=== PATIENT | male | born 1955 | race Caucasian/White ===

== ENCOUNTER 2019-06-19 06:59 | Inpatient (IN) | payer MEDICARE, OTHER ==
[~2019-06-19] VITALS: Ht 193 cm; Wt 77.3 kg
[2019-06-19] MEDS ORDERED: ONDANSETRON ODT 4 MG TAB.RAPDIS ONE (07:37)
--- NOTE | 2019-06-19 07:59 | PHYS DOC ---
Adult General Chief Complaint Chief Complaint: FACE PROBLEM HPI HPI Patient is a 63-year-old male who presents with complaint of left sided mandibular pain that started yesterday. Patient has long history of trigeminal neuralgia and states that this is a flareup. He states that this is more severe than usual and usually just tries to lay down and bear out the pain. He states that pain is been constant and is severe. He states that symptoms are worsened with movement of his jaw and with palpation of that area.[] Review of Systems Review of Systems Constitutional: Denies fever or chills [] Eyes: Denies change in visual acuity, redness, or eye pain [] Respiratory: Denies cough or shortness of breath [] Cardiovascular: No additional information not addressed in HPI [] Integument: Denies rash or skin lesions [] Neurologic: Negative headache/left-sided facial pain without focal weakness or sensory changes [] All other systems were reviewed and found to be within normal limits, except as documented in this note. Current Medications Current Medications Current Medications Medications (Trade) Dose Ordered Sig/Robbie Start Time Stop Time Status Last Admin Dose Admin Butorphanol Tartrate (Stadol) 2 mg 1X ONCE 06/19/19 08:00 06/19/19 08:01 06/19/19 07:53 2 MG Ondansetron HCl (Zofran Odt) 4 mg STK-MED ONCE 06/19/19 07:37 06/19/19 07:38 DC Ondansetron HCl (Zofran) 4 mg 1X ONCE 06/19/19 08:00 06/19/19 08:01 06/19/19 07:53 4 MG Allergies Allergies Allergies Coded Allergies Type Severity Reaction Last Updated Verified No Known Drug Allergies 06/19/19 No Physical Exam Physical Exam Constitutional: Well developed, well nourished, in moderate distress. [] HENT: Normocephalic, atraumatic, bilateral external ears normal, oropharynx moist, no oral exudates, nose normal. [] Eyes: PERRLA, EOMI, conjunctiva normal, no discharge. [] Neck: Normal range of motion, supple, no stridor. [] Cardiovascular: Regular rate and rhythm[] Lungs & Thorax: Bilateral breath sounds clear to auscultation [] Skin: Warm, dry, no erythema, no rash. [] Extremities: No tenderness, no cyanosis, no clubbing, ROM intact, no edema. [] Neurologic: Alert and oriented X 3, no focal deficits noted. [] Current Patient Data Vital Signs Vital Signs Date Time Temp Pulse Resp B/P (MAP) Pulse Ox O2 Delivery O2 Flow Rate FiO2 06/19/19 07:53 18 95 EKG EKG [] Radiology/Procedures Radiology/Procedures [] Course & Med Decision Making Course & Med Decision Making Pertinent Labs and Imaging studies reviewed. (See chart for details) [] Dragon Disclaimer Dragon Disclaimer This electronic medical record was generated, in whole or in part, using a voice recognition dictation system. Departure Departure: Impression: Primary Impression: Trigeminal neuralgia of left side of face Additional Impression: Intractable pain Disposition: ADMITTED INPATIENT Admitting Physician: Jess Chen Condition: IMPROVED Referrals: MARICRUZ CHENG (PCP) Problem Qualifiers SEBASTIAN MOLINA Jr. DO Jun 19, 2019 07:59
[2019-06-19] MEDS ORDERED: ONDANSETRON PF 4 MG/2 ML VIAL. IM ONE (08:00)
[2019-06-19] MEDS ORDERED: BUTORPHANOL 2 MG VIAL. IM ONE (08:00)
[2019-06-19] MEDS ORDERED: IV NORMAL SALINE 1,000ML 1,000 ML IV SCH (08:56)
[2019-06-19] MEDS ORDERED: CAPSAICIN 0.025% TOPICAL CREAM 60GM TUBE. TP STA (08:58)
[2019-06-19] MEDS ORDERED: ONDANSETRON PF 4 MG/2 ML VIAL. IV ONE (09:00)
[2019-06-19 09:15] LABS: BASO # 0.1 x10^3/uL (0.0-0.2); BASO % 1 % (0-3); EOS # 0.1 x10^3/uL (0.0-0.7); EOS % 1 % (0-3); HEMOGLOBIN 15.9 g/dL (13.0-17.5); LYMPH # 1.1 x10^3/uL (1.0-4.8); LYMPH % 11 % (24-48); MEAN CORPUSCULAR HEMOGLOBIN 31 pg (25-35); MEAN CORPUSCULAR HGB CONC 34 g/dL (31-37); MEAN CORPUSCULAR VOLUME 92 fL (79-100); MONO # 0.8 x10^3/uL (0.0-1.1); MONO % 8 % (0-9); NEUT # 8.1 x10^3uL (1.8-7.7); NEUT % 80 % (31-73); PLATELET COUNT 198 x10^3/uL (140-400); RED BLOOD COUNT 5.13 x10^6/uL (4.30-5.70); RED CELL DISTRIBUTION WIDTH 13.1 % (11.5-14.5); WHITE BLOOD COUNT 10.2 x10^3/uL (4.0-11.0)
[2019-06-19] MEDS ORDERED: HYDROmorphone PF 1 MG/ML DISP.SYRIN IV ONE (09:15)
[2019-06-19 09:28] LABS: ALBUMIN 4.4 g/dL (3.4-5.0); CALCIUM 9.1 mg/dL (8.5-10.1); CREATININE 0.9 mg/dL (0.7-1.3); DIRECT BILIRUBIN 0.1 mg/dL (0.0-0.2); GFR 84.7; MAGNESIUM 2.2 mg/dL (1.8-2.4); POTASSIUM 4.2 mmol/L (3.5-5.1); TOTAL BILIRUBIN 0.4 mg/dL (0.2-1.0); TOTAL PROTEIN 7.9 g/dL (6.4-8.2)
--- NOTE | 2019-06-19 10:40 | RAD ---
STUDY: CT head without contrast INDICATION: Severe headache and facial pain. COMPARISON: None. TECHNIQUE: Axial CT imaging through the head without the use of intravenous contrast. Sagittal and coronal reformats were obtained. One or more of the following individualized dose reduction techniques were utilized for this examination: 1. Automated exposure control 2. Adjustment of the mA and/or kV according to patient size 3. Use of iterative reconstruction technique. FINDINGS: No acute intracranial hemorrhage no mass effect, midline shift or hydrocephalus. Jansen-white matter differentiation is maintained. No opacification of the mastoid air cells or middle ears. Cerumen within the left more so than right external auditory canals. Intermittent opacification of anterior ethmoidal air cells and small frontal sinus retention cysts or polyps. IMPRESSION: No acute intracranial abnormality to account for the patient's symptoms. Electronically signed by: DALLAS MALONEY MD (06/19/2019 10:37 AM) [facility]
[2019-06-19] MEDS ORDERED: ONDANSETRON PF 4 MG/2 ML VIAL. IV PRN (10:45)
[2019-06-19] MEDS: HYDROmorphone PF 1 MG/ML DISP.SYRIN IV PRN ×2 (11:38→13:47)
[2019-06-19] MEDS: IV NORMAL SALINE 1,000ML 1,000 ML IV SCH ×2 (11:40→20:37)
[2019-06-19 12:08] VITALS: BP 167/78
[2019-06-19] MEDS ORDERED: CARB200T PO (12:22)
--- NOTE | 2019-06-19 12:38 | NUR ---
The patient, KAELYN ESCALANTE, 63 y/o, M admitted by BERONICA WHEELER MD, was given written information regarding hospital policies, unit procedures and contact persons. Valuables were checked and left with patient at bedside. Patient is alert and oriented x4, speech is garbled due to trigeminal neuralgia pain. Able to make wants and needs known and able to verbalize understanding of others. Patient is admitted with a diagnosis of trigeminal neuralgia flare up. Patient denies any other medical history. Stated to this nurse "This is the first time i have ever been in the hospital in my life." Patient has a 20g RFA with NS running at 100ml hour. Prn pain medication has been administered but not effective at this time. Patient is up ad jose g, continent of bowel and bladder, RA for oxygen, abdomen is soft and non tender with active bowel sounds in all 4 quadrants. Last BM 06-15-2019. Dr. Wheeler was verbally notified of patient's admission, no new orders at this time. Patient is resting in bed at this time.
[2019-06-19] MEDS ORDERED: FLU VAX QS 2019-20 (36MOS+)/PF 0.5 ML SYRINGE. VAX IM ONE (13:00)
[2019-06-19] MEDS ORDERED: CAPSAICIN 0.025% TOPICAL CREAM 60GM TUBE. TP SCH (13:15)
[2019-06-19] MEDS: carBAMazepine 200 MG TABLET PO SCH ×2 (13:49→21:01)
--- NOTE | 2019-06-19 14:14 | HP ---
ADMIT DATE: 06/19/2019 HISTORY OF PRESENT ILLNESS: The patient is a 63-year-old male patient with a longstanding history of trigeminal neuralgia, who apparently came to the Emergency Room with severe flare up that is more than his usual. Apparently, he has this disease for the last 20 years and has multiple episodes of flare-ups, but this apparently seems to be worse than any other flare up before. The pain is precipitated by talking, eating, touching his face. It is more in the distribution of the mandibular branch of the trigeminal nerve. He was supposed to be on 900 mg of Tegretol twice a day, but takes only a third of that, he takes only 1-1/2 twice a day, gets a total of 600 a day. According to his , he has seen an internal medicine physician who uses also acupuncture and they have also CyberKnife treatment without much improvement. PAST MEDICAL HISTORY: Unremarkable. PAST SURGICAL HISTORY: Unremarkable. ALLERGIES: He has no known drug allergies. MEDICATIONS: He is currently on carbamazepine for Tegretol. He should be taking a total of 900 mg twice a day, but he takes only a total of 600 mg once a day. FAMILY HISTORY: He has 1 brother older and at the age of 70 because of myocardial infarction. One sister older and still alive. She has chronic kidney disease, diabetes and a heavy smoker. Her father at age of 69 because of myocardial infarction. Mother at age of 89. SOCIAL HISTORY: He is , has 3 children from previous marriage. He does not smoke, drink alcohol or use any recreational drugs. He is retired from the [employer]. REVIEW OF SYSTEMS: The patient denied any blurring of vision, cataract, glaucoma or macular degeneration. Denied any earache, tinnitus or sensorineural deafness. Denied any nosebleeds, stuffy nose or postnasal drip. Denied any sore throat, sore tongue, toothache, hoarseness of voice or difficulty swallowing. Denied any nausea, vomiting, diarrhea or constipation, although he has some nausea today as he received multiple narcotics. Denied any dysuria, frequency or hematuria. Denied any chest pain, shortness of breath, orthopnea, paroxysmal nocturnal dyspnea. PHYSICAL EXAMINATION: GENERAL: On arrival to the Emergency Room, he looked well and was clearly in no apparent respiratory distress. No pallor, jaundice, cyanosis or thyromegaly. No jugular venous distention. No limb edema. VITAL SIGNS: His heart rate was 63, blood pressure was 142/99, temperature was 97.6, respiratory rate was 18, and oxygen saturation was 100% on room air. HEAD, EYES, EARS, NOSE AND THROAT: Showed normocephalic, atraumatic. NECK: Supple. HEART: Showed normal first and second heart sounds. No gallop or murmur. CHEST: Clear to auscultation. No crepitation or rhonchi. ABDOMEN: Distended, soft, nontender. No guarding or rigidity. No organomegaly. All hernial orifices intact. Bowel sounds normal. NEUROLOGIC: He is awake, alert, responding appropriately, although talking precipitate severe pain; however, grossly all his cranial nerves are intact. He moves extremities without difficulty. LABORATORY DATA: On admission showed a white cell count of 10,200, hemoglobin 15.9, hematocrit 47, MCV 92, and platelet count of 198,000 with normal manual differential. Her serum sodium was 143, potassium 4.2, chloride 106, bicarbonate 27, anion gap of 10, BUN 15, creatinine 0.9, estimated GFR was 85 mL per minute, his glucose was 122. Calcium was 9.1, magnesium was 2.2. Total bilirubin, AST, ALT, alkaline phosphatase were normal. Total protein was 7.9, albumin was 4.4. He had a CT scan of the head which showed no acute intracranial hemorrhage or mass effect, midline shift or hydrocephalus. Michael-white differentiation is maintained. There is no opacification of the mastoid air cells of middle ears. Cerumen within the left more so than right external auditory canals. The patient has received multiple narcotics including hydromorphone twice as well as capsaicin and Stadol. Continue with IV fluid. I will increase his Tegretol and consult Dr. Samaniego to assist with his management for severe flare up of his left-side trigeminal neuralgia. BERONICA WHEELER MD DR: MANDI/rosa JOB#: [id number] / [id number]
[2019-06-19 14:40] VITALS: BP 145/74
--- NOTE | 2019-06-19 15:09 | NUR ---
New order for baclofen received via telephone for patient's complaint of trigeminal neuralgia pain.
[2019-06-19] MEDS: BACLOFEN 10 MG TABLET PO SCH ×2 (15:26→21:01)
--- NOTE | 2019-06-19 18:17 | NUR ---
New order for 100MG Lyrica received from Dr. Samaniego via telephone for patient's trigeminal neuralgia pain.
[2019-06-19 19:24] VITALS: BP 138/72
[2019-06-19] MEDS: PREGABALIN 50 MG CAPSULE PO SCH (21:00)
[2019-06-19] MEDS ORDERED: AMITRIPTYLINE HCL 25 MG TABLET PO ONE (21:00)
--- NOTE | 2019-06-20 01:42 | CONS ---
DATE OF CONSULTATION: 06/19/2019 REFERRING PHYSICIAN: Dr. Chen. REASON FOR CONSULTATION: Severe left facial pain. HISTORY OF PRESENT ILLNESS: This is a 63-year-old right-handed male, who has a 20-history of intermittent left trigeminal neuralgia along with severe flareup. According to the patient, he has been treated conservatively with carbamazepine at 300 mg twice daily, but recently, he increase carbamazepine dose to 400 mg twice daily after he started having recent flareup. He was admitted to Emergency Room because of intractable neuropathic pain. The pain usually aggravated by chewing, eating, drinking, talking or even by touching his left face. The patient was treated in pain clinic and had a treatment with gamma knife without significant relief of his symptoms. Currently, his Tegretol level increased to 600 mg t.i.d. The patient stated his current pain level is 8/10. Additionally, he was treated with Stadol injection along with baclofen and capsaicin cream for topical applications without significant relief of his symptoms. Initial nonenhanced head CT scan is negative for acute intracranial process. PAST MEDICAL HISTORY: As described above. SOCIAL HISTORY: The patient is . He has 3 children. He denies smoking, alcohol drinking, or illicit drug use. FAMILY HISTORY: Positive for coronary artery disease. His brother at the age of 70 from myocardial infarction, positive history for diabetes, kidney disease. His father at the age of 69 from myocardial infarction. His mother at age of 89. CURRENT MEDICATIONS: Baclofen 10 mg t.i.d., carbamazepine 600 mg t.i.d., capsaicin 1 ampoule t.i.d., Dilaudid 0.5 mg q.2 hours IV p.r.n. for pain, Zofran 4 mg q.4 hours p.r.n. for nausea and vomiting. He is also on IV fluid. ALLERGIES: No known drug allergies. REVIEW OF SYSTEMS: A 10-point review of system was performed as mentioned above in history of present illness. PHYSICAL EXAMINATION: GENERAL: Well-developed, well-nourished male, not in acute distress. VITAL SIGNS: Blood pressure 138/72, respiratory rate 18, pulse is 59, temperature 97.9, oxygen saturation is 98% on room air. HEENT: Normocephalic, atraumatic, otherwise unremarkable. NECK: Supple. Negative for carotid bruit, lymphadenopathy or thyromegaly. LUNGS: Clear to A and P. CARDIOVASCULAR: Regular rate and rhythm. Normal S1, S2. There is no S3, S4 or murmur. ABDOMEN: Soft. Bowel sounds positive. EXTREMITIES: Negative for cyanosis, clubbing, or pitting edema. NEUROLOGICAL EXAMINATION: Mental status: The patient is alert and oriented x 3. Speech is fluent. There is no language dysfunction. Memory, judgment, and abstract thinking are normal. The patient denies hallucination or delusion. CRANIAL NERVES: Visual owens are full. The pupils are reactive to light and accommodation. The extraocular movements are intact. There is no nystagmus. There is no facial motor or sensory deficit. Hearing is intact bilaterally. The palate is elevated symmetrically. Sternocleidomastoid muscles are powerful bilaterally. The patient shrugs his shoulders symmetrically, protrudes his tongue in the midline without fasciculation or atrophy. MOTOR: No focal muscle bulk was seen. The tone is normal. The strength is 5/5 throughout. Sensory examination revealed normal pinprick, light touch, vibratory and position senses. Deep tendon reflexes were asymmetric and active without pathology responses. Gait not tested. LABORATORY DATA: CBC revealed white blood cells of 10.2 thousand, hemoglobin 15.9, hematocrit 47, platelet count is 198,000. Chemistry revealed sodium of 143, potassium 4.2, chloride 106, CO2 of 27, BUN 15, creatinine 0.9, glucose 122 and calcium 9.1. Liver enzymes are normal. IMPRESSION: Intractable left trigeminal neuralgia. RECOMMENDATIONS: 1. Continue with current management initiated by Dr. Chen, will start the patient on amitriptyline 25 mg at bedtime. 2. Brain MRI with and without contrast. 3. Neurosurgery consultation for possible interventional managements. M Hector RIVAS MD DR: ETHAN/rosa JOB#: [id number] / [id number]
[2019-06-20 05:53] LABS: HEMATOCRIT 42.5 % (39.0-53.0); HEMOGLOBIN 14.2 g/dL (13.0-17.5); RED BLOOD COUNT 4.6 x10^6/uL (4.30-5.70); RED CELL DISTRIBUTION WIDTH 13.2 % (11.5-14.5); WHITE BLOOD COUNT 5.4 x10^3/uL (4.0-11.0)
[2019-06-20 06:01] VITALS: BP 161/83
[2019-06-20 06:11] LABS: ALBUMIN 3.4 g/dL (3.4-5.0); ALBUMIN/GLOBULIN RATIO 1.2 (1.0-1.7); CREATININE 0.8 mg/dL (0.7-1.3); POTASSIUM 4.3 mmol/L (3.5-5.1); TOTAL BILIRUBIN 0.4 mg/dL (0.2-1.0); TOTAL PROTEIN 6.3 g/dL (6.4-8.2)
[2019-06-20] MEDS: IV NORMAL SALINE 1,000ML 1,000 ML IV SCH (06:28)
[2019-06-20] MEDS: PREGABALIN 50 MG CAPSULE PO SCH (07:53)
[2019-06-20] MEDS: BACLOFEN 10 MG TABLET PO SCH ×2 (08:08→14:00)
[2019-06-20] MEDS: carBAMazepine 200 MG TABLET PO SCH ×2 (08:09→14:43)
[2019-06-20] MEDS ORDERED: FLU VAX QS 2019-20 (36MOS+)/PF 0.5 ML SYRINGE. VAX IM ONE (09:00)
--- NOTE | 2019-06-20 10:00 | NUR ---
PT resting quietly. Denies any needs at this time.
[2019-06-20 10:09] VITALS: BP 138/73
--- NOTE | 2019-06-20 10:32 | PN ---
DATE: SUBJECTIVE: The patient continues to have left facial pain. He denies headaches, visual disturbances, nausea, vomiting, chest pain, shortness of breath or palpitation. According to the patient, his pain is now at 3/10 and today he feels his pain is improved. His current medications include carbamazepine 600 t.i.d. He was given Dilaudid on p.r.n. basis and amitriptyline 25 mg at bedtime, started last night. The patient slept better. OBJECTIVE: GENERAL: Well-developed, well-nourished male, not in acute distress. VITAL SIGNS: Blood pressure 161/83, respiratory rate 18, pulse is 56, oxygen saturation 96% on room air, and temperature 97.4. HEENT: Normocephalic, atraumatic, otherwise unremarkable. NECK: Supple. Negative for carotid bruit, lymphadenopathy or thyromegaly. LUNGS: Clear to A and P. CARDIOVASCULAR: Regular rate and rhythm, normal S1, S2. There is no S3, S4 or murmur. ABDOMEN: Soft. Bowel sounds positive. EXTREMITIES: Negative for cyanosis, clubbing, pitting edema. NEUROLOGICAL EXAM: Normal mental status and intact cranial nerves. There is no focal motor or sensory deficit. Deep tendon reflexes were symmetric and active without pathologic responses. Gait not tested. The coordination is normal. LABORATORY DATA: CBC revealed white blood cells of 5.4 thousand, hemoglobin 14.2, hematocrit 42.5, platelet count 147,000. Chemistry revealed sodium of 144, potassium 4.3, chloride 108, CO2 of 28, BUN 11, creatinine 0.8, glucose 105, calcium 8. IMPRESSION: Intractable left trigeminal neuralgia, improved from yesterday. RECOMMENDATIONS: 1. Brain MRI. 2. Neurosurgery consult for possible interventional management. On discharge, the patient should continue with current medications. M Hector RIVAS MD DR: ETHAN/rosa JOB#: [id number] / [id number]
--- NOTE | 2019-06-20 10:35 | NUR ---
Spoke with in regards to setting up outpatient mri, states she has for life and will need referral. Will print off information for closest MRI and discuss getting an order for MRI and consult for Neuro SX with Dr WHEELER.
--- NOTE | 2019-06-20 11:00 | NUR ---
RN rounded on PT. PT up to void. RN stand by assist but PT is stable on his feet, denies any needs at this time.
[2019-06-20 14:24] VITALS: BP 138/77
[2019-06-20] MEDS ORDERED: BACL10TA PO (17:14)
--- NOTE | 2019-06-20 18:46 | NUR ---
Discharge instruction and prescriptions provided to PT and spouse. RN addressed all questions and concerns. PT and spouse verbalized understanding and denied further issues. Discharge packet provided to spouse, who signed hospital copy which was placed in chart. PIV removed without issue or incident, dressed with gauze/koban. PT requests wheelchair for discharge due to effects of medication. PT escorted off unit, and assisted in to family POV without issue or incident, all personal belongings in hand.
--- NOTE | 2019-06-20 21:54 | DS ---
DATE OF DISCHARGE: 06/20/2019 HOSPITAL COURSE: The patient is a 63-year-old male patient who was admitted with a flare up of his left-sided trigeminal neuralgia. The flareup was severe and more than his usual. He has had this disease for almost 20 years and has multiple episodes of flare-ups. The pain has been precipitated by talking, eating, touching his face. It is more in the distribution of the mandibular branch of the trigeminal nerve. He was supposed to be on 1900 mg of Tegretol twice a day, but takes only one and a half tablet twice a day with a total of 600 a day. According to his , he has seen an internal medicine physician who used also acupuncture. They also had CyberKnife treatment without much improvement. He was basically admitted and was treated by increasing his dose of Tegretol to 600 mg 3 times a day. We added baclofen and together with narcotic in the form of hydromorphone and he is actually much better. He is now pain free, although he feels that he is very dizzy and unsteady. He has been up and about, stable and expressed desire to go home. PHYSICAL EXAMINATION: GENERAL: When I saw him this afternoon, he was definitely much better clearly and his pain has completely subsided. There was no pallor, jaundice, cyanosis or thyromegaly. No jugular venous distension. No limb edema. VITAL SIGNS: His heart rate was 65, blood pressure was 138/77, temperature was 97.4, respiratory rate was 18, and oxygen saturation was 100% on room air. HEAD, EYES, EARS, NOSE AND THROAT: Showed normocephalic, atraumatic. NECK: Supple. HEART: Showed normal first and second heart sounds with no gallop or murmur. CHEST: Clear to auscultation. No crepitation or rhonchi. ABDOMEN: Distended, soft, nontender. NEUROLOGIC: He is awake, alert, responding appropriately. All cranial nerves intact. EXTREMITIES: He moves extremities without difficulty. He ambulates without assistance or assistive devices. LABORATORY DATA: Showed a white cell count 5400, hemoglobin 14, hematocrit 42, MCV 92, and platelet count 247,000. Serum sodium was 144, potassium 4.3, chloride 108, bicarbonate 28, anion gap of 8, BUN 11, creatinine 0.8, estimated GFR was 97 mL per minute, his glucose 105, calcium was 8. Total bilirubin, AST, ALT, alkaline phosphatase were normal. Total protein was 6.3, albumin was 3.4. DISCHARGE MEDICATIONS: He was discharged home to continue on baclofen 5 mg 3 times a day and carbamazepine should be 600 mg twice a day. We have also arranged for him to have a brain MRI with and without contrast and also to arrange for neurosurgical consult with Dr. Lucas at [facility]. FINAL DISCHARGE DIAGNOSIS: Severe flare up of his trigeminal neuralgia. BERONICA WHEELER MD DR: MANDI/rosa JOB#: [id number] / [id number]
== END 2019-06-20 19:04 | disposition home or self-care (01) | DRG 74 ==
LOC: ER 06:59 → 1 SOUTH 10:48
PROVIDERS: ADMIT Internal Medicine; ATTEND Internal Medicine
DX: G50.0 Trigeminal neuralgia (principal); Z79.899 Other long term (current) drug therapy; Z82.49 Family history of ischemic heart disease and other diseases of the circulatory system; Z83.3 Family history of diabetes mellitus
CPT/HCPCS: 36415; 70450; 80048; 80053; 80076; 83735; 85025; 85027; 90471; 90686; 96361; 96372; 96374; 96375; J0595; J1170; J2060; J2405; 99285-25; J7030